=== PATIENT | male | born 2000 | race Caucasian/White ===

== ENCOUNTER 2021-01-21 09:07 | Emergency (ER) | payer OTHER, SELFPAY ==
--- NOTE | ~2021-01-21 | XR_ITS ---
EXAMINATION: XR finger 2nd RT min 2V EXAM DATE: 01/21/2021 09:46 INDICATION: Initial encounter following injury, with pain of the right 2nd finger. TECHNIQUE: Right 2nd finger frontal, lateral and oblique projections obtained and reviewed. There is no prior study for comparison. FINDINGS: There are no acute right 2nd finger fractures or dislocations identified. There is no subc utaneous gas. Possible laceration at the fingertip. There are no radiopaque foreign bodies. IMPRESSION: No acute osseous findings. Reviewed, dictated and finalized at location A. IMPRESSION: No acute osseous findings.
[2021-01-21 09:15] VITALS: BP 128/72; PULSE 96; RESP 18; TEMP 36.1; O2SAT 98
--- NOTE | 2021-01-21 09:41 | ED.WOUNDLAC ---
HPI - Wound/Laceration General Chief Complaint: Wound/Laceration <Steffanie Agarwal PA-C - Last Filed: 01/21/21 10:57> Stated Complaint: lac on finger <Steffanie Agarwal PA-C - Last Filed: 01/21/21 10:57> Time Seen by Provider: 01/21/21 09:35 <Steffanie Agarwal PA-C - Last Filed: 01/21/21 10:57> Source: patient <Steffanie Agarwal PA-C - Last Filed: 01/21/21 10:57> Mode of arrival: ambulatory <Steffanie Agarwal PA-C - Last Filed: 01/21/21 10:57> Limitations: no limitations <Steffanie Agarwal PA-C - Last Filed: 01/21/21 10:57> History of Present Illness HPI narrative: This is a 20 year old male that presents to the ER for laceration to the right second finger sustained just prior to arrival. Reports he was working on [employer]. He was taking a pin out a got his finger caught. Sustained a laceration to the end of the finger. He does believe his last tetanus vaccine was within 5 years. Denies decreased ROM or numbness. <Steffanie Agarwal PA-C - Last Filed: 01/21/21 10:57> Related Data Allergies/Adverse Reactions: Allergies Allergy/AdvReac Type Severity Reaction Status Date / Time No Known Allergies Allergy Mild Verified 01/21/21 09:18 <Steffanie Agarwal PA-C - Last Filed: 01/21/21 10:57> Review of Systems Review of Systems: Narrative: CONSTITUTIONAL: Denies fever SKIN: Reports laceration MUSCULOSKELETAL: Denies joint pain, or myalgia. NEUROLOGIC: Denies numbness <Steffanie Agarwal PA-C - Last Filed: 01/21/21 10:57> All systems reviewed & are unremarkable except as noted in HPI and below <Steffanie Agarwal PA-C - Last Filed: 01/21/21 10:57> [facility] Past Medical History Medical History: Medical History (Updated 01/21/21 @ 10:56 by Steffanie Agarwal PA-C) No active medical problems <Steffanie Agarwal PA-C - Last Filed: 01/21/21 10:57> Social History Social History: Social History (Updated 01/21/21 @ 09:49 by Steffanie Agarwal PA-C) Smoking status: Current some day smoker Gender identity (if verbalized by the patient): Male <Steffanie Agarwal PA-C - Last Filed: 01/21/21 10:57> Exam Narrative: Exam Narrative: GENERAL: Well-appearing, well-nourished, and in no acute distress. HEAD: Normocephalic, atraumatic. EYES: EOMI. EXTREMITIES: Normal range of motion. No edema or obvious deformity. 1cm area of skin avulsion at the tip of the right 2nd finger, bleeding is controlled. Normal sensation. Normal radial pulses SKIN: Warm, dry, no rash. NEURO: No focal deficits. Alert and oriented x3. PSYCH: Normal mood and affect <Steffanie Agarwal PA-C - Last Filed: 01/21/21 10:57> Course Vital Signs Vital signs: Vital Signs Temperature 97.0 F L 01/21/21 09:15 Pulse Rate 96 01/21/21 09:15 Respiratory Rate 18 01/21/21 09:15 Blood Pressure 128/72 01/21/21 09:15 Pulse Oximetry 98 01/21/21 09:15 Temperature 97.0 F L 01/21/21 09:15 Pulse Rate 87 01/21/21 11:24 Respiratory Rate 15 01/21/21 11:24 Blood Pressure 143/66 H 01/21/21 11:24 Pulse Oximetry 100 01/21/21 11:24 <Steffanie Agarwal PA-C - Last Filed: 01/21/21 10:57> Vital Signs Temperature 97.0 F L 01/21/21 09:15 Pulse Rate 96 01/21/21 09:15 Respiratory Rate 18 01/21/21 09:15 Blood Pressure 128/72 01/21/21 09:15 Pulse Oximetry 98 01/21/21 09:15 Temperature 97.0 F L 01/21/21 09:15 Pulse Rate 87 01/21/21 11:24 Respiratory Rate 15 01/21/21 11:24 Blood Pressure 143/66 H 01/21/21 11:24 Pulse Oximetry 100 01/21/21 11:24 <Jocelin Regalado MD - Last Filed: 01/21/21 17:19> Procedures Laceration Laceration 1: Date: 01/21/21 <Steffanie Agarwal PA-C - Last Filed: 01/21/21 10:57> Time: 10:54 <Steffanie Agarwal PA-C - Last Filed: 01/21/21 10:57> Site: hand <Steffanie Agarwal PA-C - Last Filed: 01/21/21 10:57> Side (If applicable): right <Steffanie Agarwal PA-C - Last Filed: 01/21/21 10:57> Size (cm):
[2021-01-21 11:24] VITALS: BP 143/66; PULSE 87; RESP 15; O2SAT 100
== END 2021-01-21 11:25 | disposition home or self-care (01) ==
PROVIDERS: Emergency Provider General Practice
DX: S61.210A Laceration without foreign body of right index finger without damage to nail, initial encounter (principal); F17.200 Nicotine dependence, unspecified, uncomplicated; W23.0XXA Caught, crushed, jammed, or pinched between moving objects, initial encounter
CPT/HCPCS: 12001; 73140; 99283

== ENCOUNTER 2024-09-21 16:41 | Emergency (ER) | payer OTHER, SELFPAY ==
--- NOTE | ~2024-09-21 | XR_ITS ---
XR chest 2V Ordering provider: Ambika Jaquez APRN History: 24 years Male with . cough fever x 2 days . Comparison: None. FINDINGS: MEDIASTINUM: The cardiac silhouette is not enlarged. LUNGS: No infiltrates, effusions or pneumothorax. Prominent bronchovascular markings in the lower lob es which may indicate bronchiolitis. Early pneumonia is not excluded. Follow-up advised. OTHER: No free air under the diaphragm. IMPRESSION: Highly suggestive bronchiolitis in the lower lobes more on the left side. Early pneumonia is not excl uded. Follow-up advised. Reviewed, dictated and finalized at location A. RO[employer]PECT[employer] IMPRESSION: Highly suggestive bronchiolitis in the lower lobes more on the left side. Early pneumonia is not excluded. Follow-up advised.
[2024-09-21 17:23] VITALS: BP 126/81; PULSE 105; RESP 18; TEMP 36.8; O2SAT 100
--- NOTE | 2024-09-21 17:43 | ED.URI ---
HPI - URI/Sore Throat General Chief Complaint: Upper Respiratory Infection Stated Complaint: Fever / Chest Congestion Time Seen by Provider: 09/21/24 17:44 Source: patient, RN notes reviewed and old records reviewed Mode of arrival: ambulatory Limitations: no limitations History of Present Illness HPI Narrative: 24-year-old male presents to the [facility] with complaints of cough, congestion, laryngitis, fatigue in fever of 100 point through yesterday. Symptoms started 2 days ago. Has taken ibuprofen. No other treatment prior to arrival Related Data Home Medications ?Medication ?Instructions ?Recorded ?Confirmed ?Last Taken ?Type escitalopram oxalate 10 mg tablet mg 09/21/24 Unknown History Allergies Allergy/AdvReac Type Severity Reaction Status Date / Time No Known Allergies Allergy Mild Verified 09/21/24 17:34 Review of Systems Review of Systems: All systems reviewed & are unremarkable except as noted in HPI and below Constitutional: Constitutional: Reports as per HPI ENT: Reports as per HPI Cardiovascular: Cardiovascular: Reports no additional cardiovascular complaints, Denies chest pain and Denies dyspnea Respiratory: Respiratory: Reports as per HPI, Denies chest congestion, Reports cough and Denies dyspnea Musculoskeletal: Musculoskeletal: Reports no additional musculoskeletal complaints Integumentary/Breasts: Skin/Breast: Reports system reviewed and no additional complaints, except as docu PMFSH Past Medical History Medical History No active medical problems Social History Social History Smoking status: Current some day smoker Gender identity (if verbalized by the patient): Male Comments At the time of my signature, I reviewed and agree with the nursing past medical, surgical, social, and family history. There is no relevant family history pertinent to the patient complaint. Exam Const: General: cooperative, no acute distress, well developed, alert, uncomfortable and well nourished Nutritional Appearance: well nourished and obese Orientation/consciousness: patient oriented x3 Limitations: no limitations HENMT: Head: normal to inspection Ears: hearing grossly normal bilaterally, external ears normal, TM's normal bilaterally, EAC's normal, mastoids normal and no periauricular adenopathy Face/Nose/Sinus: Normal external nose present and Normal nasal mucous membranes and turbinates present Mouth: Yes Normal oral and palatal mucosa present, Yes lip normal, Yes tongue normal and Yes moist mucous membranes Throat: posterior oropharynx normal, uvula midline, postnasal drainage and no uvular edema Eyes: General: appearance normal, both eyes and all related structures Alignment and Position: alignment normal Neck: Neck: normal visual inspection, full ROM, no lymphadenopathy and no meningeal signs Chest: Chest palpation & inspection: normal inspection of the chest Resp: Effort & Inspection: normal respiratory effort and able to speak in complete sentences Auscultation: crackles on the right in the lower lung crane, no rales, no rhonchi and wheezes expiratory wheezes and scattered wheezes Cardio: Rate: regular rate Skin: General skin exam: normal color and no rashes or lesions noted Neuro: General: patient oriented x3, gait normal, moves all extremities and no meningeal signs Cognition (Neuro): normal cognition Speech: normal speech Gait exam (Neuro): Normal gait present Extrem: General: normal to inspection, full ROM, capillary refill normal and normal gait Psych: Appearance: grossly normal and well kempt Mental Status: mental status grossly normal Speech and movement: Normal speech and movement present and Clear speech present Affect: normal affect Attitude: cooperative Course Course Level of Care: Express Care Visit Vital Signs Vital signs: Vital Signs Temperature 98.2 F 09/21/24 17:23 Pulse Rate 105 H 09/21/24 17:23 Respiratory Rate 18 09/21/24 17:23 Blood Pressure 126/81 09/21/24 17:23 Pulse Oximetry 100 09/21/24 17:23 Oxygen Delivery Room Air 09/21/24 17:23 Temperature 98.2 F 09/21/24 17:23 Pulse Rate 105 H 09/21/24 17:23 Respiratory Rate 18 09/21/24 17:23 Blood Pressure 126/81 09/21/24 17:23 Pulse Oximetry 100 09/21/24 17:23 Oxygen Delivery Room Air 09/21/24 17:23 Reviewed MDM - URI/Sore Throat MDM Narrative Medical decision making narrative: Patient sitting comfortably in exam room. Nontoxic, vitals stable. Patient in no acute distress. Patient presents with 2 day history of, congestion, laryngitis. Reports fever last night. Requesting a work note. Only treatment was ibuprofen Flu COVID was negative, chest x-ray showed probable pneumonia. Will treat for pneumonia. Patient is appropriate for outpatient treatment and follow-up Discharge instructions reviewed with patient, as well as provided in writing per nursing staff. The instructions also include specific and strict return/GO TO THE ER as well as f/u information. All questions have been answered, and the patient deny any further questions with discharge and discharge plan. Some parts of this dictation were generated by voice recognition software and may contain typographical and/or grammatical inaccuracies. Differential Diagnosis Differential diagnosis: Likely upper respiratory infection, otitis media, sinusitis, viral infection, bronchitis, influenza and other (Pneumonia) Lab Data Labs: Lab Results 09/21/24 Range/Units 17:46 POC Influenza A Ag Negative (Negative) POC Influenza B Ag Negative (Negative) POC SARS CoV-2 Ag Negative (Negative) Reviewed Imaging Data Radiologist's impression: XR chest 2V Ordering provider: Ambika Jaquez APRN History: 24 years Male with . cough fever x 2 days . Comparison: None. FINDINGS: MEDIASTINUM: The cardiac silhouette is not enlarged. LUNGS: No infiltrates, effusions or pneumothorax. Prominent bronchovascular markings in the lower lobes which may indicate bronchiolitis. Early pneumonia is not excluded. Follow-up advised. OTHER: No free air under the diaphragm. IMPRESSION: Highly suggestive bronchiolitis in the lower lobes more on the left side. Early pneumonia is not excluded. Follow-up advised. Critical Care Time Critical Care Time Critical Care Time: No Discharge Plan Discharge Clinical Impression: Pneumonia Qualifiers: Pneumonia type: due to unspecified organism Laterality: unspecified laterality Lung location: unspecified part of lung Qualified Code(s): J18.9 - Pneumonia, unspecified organism Patient Disposition: Home, Self-Care Condition: Stable Instructions: Antibiotic Form, Pneumonia (ED) Additional Instructions: Your rapid COVID test were negative Your rapid flu test was negative It is very important to treat your symptoms. Drink plenty of water, Gatorade, Pedialyte, ice pops or Jell-O. -Alternate Tylenol and Motrin per package directions for fever or pain. You can alternate every 4 hours -Antihistamine medication such as Benadryl at night and Zyrtec/Claritin/Christine during the day can help improve symptoms. -doing daily nasal irrigations can help relieve pressure your sinuses. Things like a Neti pot -Use Flonase twice a day for 5 days then daily to help reduce the inflammation and dry up your sinuses. -You can also use Mucinex. Be sure to drink plenty of water with this medication at least 8 ounces with every dose and it is important to drink 8 to 10 glasses of water per day. Water is a natural decongestant -Eat and drink things that are easy to swallow, like tea or soup, or popsicles. -Oral rinses such as: Salt water gargles and/or may use topical anesthetic (eg. Chloraseptic spray) or lozenges to relieve dryness or throat pain). -Frequent hand washing or hand chief substation operator is one of the best ways to prevent spread of infection. -Using a vaporizer or humidifier at night will also help thin secretions and help with coughing up phlegm. -Follow up with primary care provider in 7-10 days if condition is not improving - For new or worsening symptoms go directly to the nearest ER Patient Language: Com[place]an Prescriptions: New doxycycline monohydrate 100 mg tablet 100 mg PO BID Qty: 14 0RF albuterol sulfate 90 mcg/actuation HFA aerosol inhaler 2 puff inhalation QID PRN (Reason: shortness of breath or wheezing) Qty: 6.7 0RF (DME) Aerochamber MV Spacer See Rx Instructions .Route Qty: 1 0RF Rx Instructions: As directed No Action escitalopram oxalate 10 mg tablet cephalexin 500 mg capsule 500 mg PO Q8H 5 Days Qty: 15 0RF Follow-up/Referrals: UNKNOWN,DOCTOR [Primary Care Provider] - Stand Alone Forms: Work/School Release IP Time of Disposition: 18:19
[2024-09-21 17:48] LABS: EDCOVIDSCREEN Negative (Negative); EDINFLUASCREEN Negative (Negative); EDINFLUBSCREEN Negative (Negative)
== END 2024-09-21 18:24 | disposition home or self-care (01) ==
PROVIDERS: Emergency Provider Nurse Practitioner
DX: J18.9 Pneumonia, unspecified organism (principal); Z20.822 Contact with and (suspected) exposure to COVID-19; F17.200 Nicotine dependence, unspecified, uncomplicated
CPT/HCPCS: 71046; 87426; 87804; 99213; G0463